=== PATIENT | male | born 1980 | race Caucasian/White ===

== ENCOUNTER 2022-10-11 14:28 | Emergency (ER) | payer OTHER ==
[2022-10-11] MEDS ORDERED: Sodium Chloride 0.9% 10 ML Syringe FLUSH PRN (14:45)
[2022-10-11] MEDS ORDERED: Diltiazem 25 MG/5 ML SDV IVPUSH ONE ×2 (14:47→15:59)
[2022-10-11 15:04] LABS: ESTIMATED GFR 78 mL/min (>60)
[2022-10-11] MEDS ORDERED: Ondansetron 4 MG/2 ML SDV IVPUSH ONE (15:38)
[2022-10-11] MEDS ORDERED: Morphine 4 MG/ML VIAL IVPUSH ONE (15:38)
[2022-10-11] MEDS ORDERED: Sodium Chloride 0.9% 1,000 ML IV SCH (15:45)
[2022-10-11] MEDS ORDERED: Metoprolol Tartrate 50 MG Tab PO ONE (17:01)
== END 2022-10-11 17:20 | disposition home or self-care (01) ==
LOC: FB.ED 14:28
DX: I48.91 Unspecified atrial fibrillation (principal); I10 Essential (primary) hypertension; K21.9 Gastro-esophageal reflux disease without esophagitis; E66.9 Obesity, unspecified; Z68.35 Body mass index [BMI] 35.0-35.9, adult; Z79.82 Long term (current) use of aspirin; Z79.899 Other long term (current) drug therapy
CPT/HCPCS: 36415; 71045; 80053; 83735; 83880; 84484; 85025; 85610; 85730; 93005; 96374; 96376; 99285-25; A9270-GY; J3490